=== PATIENT | male | born 1945 | race Caucasian/White ===

== ENCOUNTER → 2016-10-19 | Day surgery (SDC) | payer OTHER, MEDICARE ==
[~2016-10-19] VITALS: Ht 177.8 cm; Wt 97.5 kg
[~2016-10-19] MED LIST: AMIODARONE HCL200 M1 PO; AMLODIPINE10 MG PO; ASPIRIN81 M4 PO; ATORVASTATIN CA80 M1 PO; CLONIDINE HCL0.1 MG PO; COZAAR 100MG T100 MG PO; DEXILANT60 MG PO; DOXAZOSIN PO; ELIQUIS5 M1 PO; ELIQUIS5 MG PO; FUROSEMIDE20 M1 PO; FUROSEMIDE40 M1 PO; HYDRODIURIL 2525 MG PO; LASIX40 M1 PO; LOPRESSOR 12.12.5 MG PO; LOSARTAN POTAS100 M1 PO; PRAVASTATIN40 MG PO
--- NOTE | 2016-10-19 11:27 | Operative Report ---
Operative/Inv Procedure Report Surgery Date: 10/19/16 Name of Procedure: Laparoscopic bilateral inguinal hernia repair Pre-Operative Diagnosis: Bilateral inguinal hernia Post-Operative Diagnosis: Same Estimated Blood Loss: less than 50ml Surgeon/Adjustment Examiner: TUCKER RODRIGUEZ,DIPAK Lan/Kranthi ortega ms Anesthesia: general endotracheal tube Implants: Parietex mesh Operative/Procedure Note Note: After consent patient is brought to the operating room laid supine. General anesthesia was obtained and the abdomen was prepped and draped. Skin was anesthetized with local anesthesia and a transverse infraumbilical incision made sharply. We identified the rectus fascia and incised transversely. Stay sutures were placed. Rectus muscle was retracted laterally and a dissecting balloon placed posterior to it. It was inflated under direct vision the camera and replaced with a blunt Dinero port. Gas was instilled. 2, 5 mm ports were placed in the infraumbilical midline after local anesthesia was instilled and under direct vision and camera. Began our dissection at the pubis and delineated the symphysis. Armando's ligament was identified and cleared. Then dissected laterally and developed the iliopubic tract. There is a large indirect hernia sac as well as lipoma. Both were delivered from the indirect space and reflected medially. The cord structures were circumferentially dissected. Once the dissection was completed a right-sided piece of Parietex mesh was placed in the cavity. It was placed around the cord structures re- create the internal ring and cover the femoral and direct spaces as well. We then turned attention to the left side. In a similar fashion coopers ligament was delineated. There is no direct hernia. We developed the iliopubic tract and discovered a small indirect hernia sac and associated cord lipoma. Dissection was carried forth as previous. Again, a left-sided hernia mesh was placed in a similar fashion. Once both mesh were in proper position, Gas was allowed to escape on maintaining proper orientation of the mesh. The fascia was closed with 0 Vicryl suture. Skin incisions closed with 4-0 Vicryl. Steri- Strips and sterile dressing applied. Sponge and needle counts are correct. CC: WALT RODRIGUEZ,KIKI Young; KALYN RODRIGUEZ,ANABELLE
== END ==
LOC: STS 01:50
DX: K40.20 Bilateral inguinal hernia, without obstruction or gangrene, not specified as recurrent (principal); I10 Essential (primary) hypertension; I48.91 Unspecified atrial fibrillation; Z79.01 Long term (current) use of anticoagulants; Z86.718 Personal history of other venous thrombosis and embolism; K21.9 Gastro-esophageal reflux disease without esophagitis
CPT/HCPCS: C1781; J0690

== ENCOUNTER 2017-11-16 11:56 | Inpatient (IN) | payer OTHER, MEDICARE ==
[~2017-11-16] VITALS: Ht 180.3 cm; Wt 102.3 kg
[~2017-11-16 11:56] MED LIST changes: -AMLODIPINE10 MG PO; +AMOX-CLAV 875-1 EACH PO; +ASPIRIN EC81 M1 PO; +KEFLEX500 M1 PO; +KEPPRA500 M1 PO; +NORVASC2.5 M1 PO; +PERCOCET 5-3251 EACH PO; +VITAMIN D250000 UNIT PO
--- NOTE | 2017-11-16 12:08 | ED NEURO DEFICIT/STROKE ---
History of Present Illness General Chief Complaint: Neuro Symptoms/ Deficit Stated Complaint: CONFUSION SLURRED SPEECH Source: patient, family, old records Exam Limitations: no limitations Vital Signs & Intake/Output Vital Signs & Intake/Output Vital Signs Date Time Temp Pulse Resp B/P B/P Pulse O2 O2 Flow FiO2 Mean Ox Delivery Rate 11/16 1324 98.0 70 18 160/72 96 Room Air 11/16 1252 76 18 177/78 96 Room Air Room Air 11/16 1225 74 18 174/81 96 Room Air Room Air 11/16 1214 96 Room Air Room Air 11/16 1204 97.9 68 20 160/78 97 Room Air Allergies Coded Allergies: NO KNOWN ALLERGIES (08/16/14) NO ALLERGIES PER ANJU IN SDS ON 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 Losartan Potassium 100 MG TABLET 1 TAB PO DAILY HTN (Reported) Triage Nurses Notes Reviewed? yes HPI: Patient lives at home alone. Patient called his daughter at 10 AM this morning because he just did not feel right. She noticed that his speech was slurred. She saw him yesterday and everything was fine. He states that he was getting ready to go to the gym when he felt of pinging sensation in his left ear as well as a tingling sensation over his left side of the body. His daughter went to his house and picked him up and brought him to the emergency department for evaluation. Upon arrival patient is slow to respond however is alert and oriented 3. Patient follows all commands. There is no slurred speech currently. During the history his mentation and cleared more and he was responding more quickly. Past History Travel History Traveled to [place] past 21 day No Medical History Any Pertinent Medical History? 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 No Review of Systems Review of Systems Constitutional: Reports: no symptoms. EENTM: Reports: no symptoms. Respiratory: Reports: no symptoms. Cardiovascular: Reports: no symptoms. GI: Reports: no symptoms. Genitourinary: Reports: no symptoms. Musculoskeletal: Reports: no symptoms. Skin: Reports: no symptoms. Neurological/Psychological: Reports: see HPI, tingling. Hematologic/Endocrine: Reports: no symptoms. Immunologic/Allergic: Reports: no symptoms. All Other Systems: Reviewed and Negative Physical Exam Physical Exam General Appearance: well developed/nourished, alert, awake, anxious, moderate distress Head: atraumatic, normal appearance Eyes: Bilateral: PERRL, EOMI. Ears, Nose, Throat: normal ENT inspection, hearing grossly normal Neck: normal inspection, supple, full range of motion Respiratory: normal breath sounds, chest non-tender, no respiratory distress, lungs clear Cardiovascular: regular rate/rhythm, normal peripheral pulses Gastrointestinal: normal bowel sounds, soft, non-tender, no organomegaly Back: normal inspection, normal range of motion Extremities: normal range of motion Psychiatric: awake, alert, oriented x 3 Cranial Nerves: normal hearing, normal speech, PERRL Motor/Sensory: no motor/sensory deficits Skin: intact, normal color, warm/dry Lymphatic: no anterior cervical ade Core Measures CVA/TIA Diagnosis: No Sepsis Present: No Sepsis Focused Exam Completed? No Progress Differential Diagnosis: drug intoxication, electrolyte imbalance, seizure disorder, stroke Plan of Care: Orders Procedure Date/time Status Heart Healthy Diet 11/16 D Active Patient Data 11/16 1351 Active ED Holding Orders 11/16 1342 Active Admit to inpatient 11/16 1342 Active Vital Signs 11/16 1342 Active Code Status 11/16 1342 Active XRY-PORTABLE CHEST XRAY 11/16 1206 Active Discontinue Telemetry/Monitor 11/16 1205 Active Telemetry/Cytogeneticist 11/16 1205 Active URINALYSIS 11/16 1205 Complete TROPONIN LEVEL 11/16 1205 Complete PARTIAL THROMBOPLASTIN TIME 11/16 1205 Complete PROTHROMBIN TIME 11/16 1205 Complete MAGNESIUM 11/16 1205 Complete ETHANOL 11/16 1205 Complete COMPREHENSIVE METABOLIC PANEL 11/16 1205 Complete CBC WITHOUT DIFFERENTIAL 11/16 1205 Complete EKG 11/16 1202 Active Current Medications Sig/Dustin Start time Last Medication Dose Stop Time Status Admin Levetiracetam 500 MG ONCE ONE 11/16 1345 AC 11/16 (Keppra) 11/16 1359 1345 N/A 1 UNIT (No Carrier) Laboratory Tests 11/16/17 1245: Urine Color STRAW, Urine Clarity CLEAR, Urine pH 6.5, Ur Specific [place] <= 1.005, Urine Protein NEG, Urine Ketones NEG, Urine Nitrite NEG, Urine Bilirubin NEG, Urine Urobilinogen 0.2, Ur Leukocyte Esterase NEG, Ur Microscopic EXAM NOT REQUIRED, Urine Hemoglobin NEG, Urine Glucose NEG 11/16/17 1217: Anion Gap 12, Estimated GFR > 60, BUN/Creatinine Ratio 18.9, Glucose 106 H, Calcium 9.7, Magnesium 1.9, Total Bilirubin 0.7, AST 25, ALT 30, Alkaline Phosphatase 97, Troponin I < 0.01, Total Protein 7.1, Albumin 3.8, Globulin 3.3, Albumin/Globulin Ratio 1.2, PT 14.9 H, INR 1.36 H, APTT 32, CBC w Diff NO MAN DIFF REQ, RBC 5.00, MCV 84.4, MCH 28.0, MCHC 33.2, RDW 14.1, MPV 7.9, Gran % 60.1, Lymphocytes % 27.9, Monocytes % 9.8 H, Eosinophils % 1.9, Basophils % 0.3 , Absolute Granulocytes 2.4, Absolute Lymphocytes 1.1 L, Absolute Monocytes 0.4 , Absolute Eosinophils 0.1, Absolute Basophils 0, Serum Alcohol < 10.0 Diagnostic Imaging: Viewed by Me: CT Scan. Discussed w/RAD: CT Scan. Radiology Impression: PATIENT: JULIETH BRIZUELA PRESENT AGE: 72 PATIENT ACCOUNT NO: [id number] : 43 LOCATION: [facility] ORDERING PHYSICIAN: Sean An MD SERVICE DATE: 11/16/171206 EXAM TYPE: CAT - CT HEAD WO IV CONTRAST EXAMINATION: CT HEAD WITHOUT CONTRAST CLINICAL INFORMATION: Left-sided weakness, resolved. COMPARISON: CT of the head done on 03/30/2017 and 05/30/2016. MRI of the head done on 05/31/2016. TECHNIQUE: Contiguous axial imaging was performed from the skull base to vertex without intravenous administration of contrast. DLP: 563.04 mGy-cm FINDINGS: There is no evidence of acute intracranial hemorrhage or territorial infarction. No abnormal mass effect or midline shift is seen. Murray to white matter differentiation is well preserved. No extra-axial fluid collections are identified. The ventricles are normal in size. Persistent stable encephalomalacia within the right temporal parietal region, consistent with old right MCA territorial infarction is noted, unchanged since 03/30/2017. The osseous structures and soft tissues are normal. The mastoid air cells and visualized portions of the paranasal sinuses are well aerated. IMPRESSION: No acute intracranial pathology. 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 DICTATED BY: Frankie Nava MD DATE/TIME DICTATED:11/16 FLOORING MECHANIC:ESTHELA DATE/TIME TRANSCRIBED:11/16/171255 CONFIDENTIAL, DO NOT COPY WITHOUT APPROPRIATE AUTHORIZATION. <Electronically signed in Other Vendor System> SIGNED BY: Frankie Nava MD 11/16/17 1304 Initial ED EKG: AFIB, nonspecific ST T wave chg Prior EKG: unchanged Rhythm Strip: atrial fibrillation Comments: PT HAD AN EPISODE OF UNRESPONSIVENESS, HYPERTONICITY AND RHYTHMIC JAW MOVMENTS. LASTED APPROX 45 SEC AND THEN RESOLVED. PT WAS SLOW TO RESPOND AFTER EPISODE. D/W DR. CHONG, INCREASE KEPPRA TO 750 BID Departure Departure Disposition: STILL A PATIENT Condition: Stable Clinical Impression Primary Impression: Seizure Referrals: Eric RODRIGUEZ,Chris Young (PCP/Family) Departure Forms: Customer Survey General Discharge Information Admission Note Spoke With: Iftikhar Cerda MD Documentation of Exam: Documentation of any treatments & extenuating circumstances including Concerns Regarding Discharge (functional status, medication knowledge or non-compliance, living conditions, etc.) that warrant an admission rather than observation: [ Patient to be admitted to telemetry, close observation, increase his Keppra dose , neurology consultation]
[2017-11-16 12:57] LABS: ABSOLUTE BASOPHIL COUNT 0 /CUMM (0.0-0.2); ABSOLUTE EOSINOPHIL COUNT 0.1 /CUMM (0.0-0.7); ABSOLUTE GRANULOCYTE CT 2.4 /CUMM (1.4-6.5); ABSOLUTE LYMPH COUNT 1.1 /CUMM (1.2-3.4); ABSOLUTE MONOCYTE COUNT 0.4 /CUMM (0.10-0.60); BASOPHIL % 0.3 % (0.0-2.0); EOSINOPHIL % 1.9 % (0-5); GRANULOCYTE % 60.1 % (42.2-75.2); HEMATOCRIT 42.2 % (42-52); MEAN CORPUSCULAR HGB CONC 33.2 G/DL (33.0-37.0); MEAN CORPUSCULAR VOLUME 84.4 FL (80.0-94.0); MEAN PLATELET VOLUME 7.9 FL (7.4-10.4); PLATELET COUNT 183 /CUMM (130-400); RBC DISTRIBUTION WIDTH 14.1 % (11.5-14.5)
--- NOTE | 2017-11-16 13:04 | CT SCAN REPORT ---
EXAMINATION: CT HEAD WITHOUT CONTRAST CLINICAL INFORMATION: Left-sided weakness, resolved. COMPARISON: CT of the head done on 03/30/2017 and 05/30/2016. MRI of the head done on 05/31/2016. TECHNIQUE: Contiguous axial imaging was performed from the skull base to vertex without intravenous administration of contrast. DLP: 563.04 mGy-cm FINDINGS: There is no evidence of acute intracranial hemorrhage or territorial infarction. No abnormal mass effect or midline shift is seen. Murray to white matter differentiation is well preserved. No extra-axial fluid collections are identified. The ventricles are normal in size. Persistent stable encephalomalacia within the right temporal parietal region, consistent with old right MCA territorial infarction is noted, unchanged since 03/30/2017. The osseous structures and soft tissues are normal. The mastoid air cells and visualized portions of the paranasal sinuses are well aerated. IMPRESSION: No acute intracranial pathology. 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
[2017-11-16 13:06] LABS: PT 14.9 SEC (9.4-12.5); PTT 32 SEC (25-37)
[2017-11-16] MEDS ORDERED: ELIQUIS5 M1 PO (13:21)
--- NOTE | 2017-11-16 13:55 | History & Physical ---
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 Family Services at Home: None, Social Work Primary Language: Maori ETOH Use: denies use Illicit Drug Use: denies illicit drug use Functional Ability ADLs Independent: dressing, eating, toileting, bathing. Ambulation: independent IADLs Independent: shopping, housework, finances, food prep, telephone, transportation , medication admin. Assessment/Plan Assessment: His last echo on 03/26: Normal size left ventricle. Mild concentric left ventricular hypertrophy. Normal left ventricular ejection fraction visually estimated at > 60%. Abnormal relaxation filling pattern of the left ventricle for age (stage 1 diastolic dysfunction). Trace mitral regurgitation. Mild aortic regurgitation. Trace tricuspid regurgitation. Mild pulmonic regurgitation. EEG ON 2016: Abnormal EEG due to right temporal slow wave activities indicative of an underlying structural abnormality This is likely related to previous cerebrovascular accident CT course: Medicine admission: The blood pressure 174/81, pulse 74, respiratory rate 18, temperature 98, pulse ox 96 on room air Admission: CbC, BEP, within normal limits except blood sugar 106, , urinalysis was normal, INR 1.36 PT HAD AN EPISODE OF UNRESPONSIVENESS, HYPERTONICITY AND RHYTHMIC JAW MOVMENTS. LASTED APPROX 45 SEC AND THEN RESOLVED. PT WAS SLOW TO RESPOND AFTER EPISODE. Initial ED EKG: AFIB, nonspecific ST T wave chg D/W DR. CHONG, INCREASE KEPPRA TO 750 BID Core Measures/Misc (02/24) Cerebrovascular Accident CVA/TIA Diagnosis: No Sepsis (View protocol) Sepsis Present: No If YES complete Sepsis Event Note If YES complete Sepsis Event Note
--- NOTE | 2017-11-16 13:57 | RADIOLOGY REPORT ---
EXAMINATION: XR PORTABLE CHEST CLINICAL INFORMATION: Chest pain. COMPARISON: Chest radiograph done on 04/01/2017. TECHNIQUE: Portable frontal view of the chest was obtained. FINDINGS: Both lungs are symmetrically expanded, and appear clear. The cardiac mediastinal silhouette is mildly enlarged. There is no pleural effusion or pneumothorax present. The visualized upper abdomen is unremarkable. No significant change. IMPRESSION: Stable appearance of the chest, unchanged since 04/01/2017.
--- NOTE | 2017-11-16 15:19 | PN- Att Addend ---
Attending Addendum Attending Brief Note Patient is a 71-year-old gentleman with medical history significant for stroke in 2016 with no gross focal neurologic deficits, atrial fibrillation on anticoagulation, supraventricular tachycardia status post ablation in 2015 and 2016 and hypertension. History is also significant for seizure disorder for which he takes Keppra. Daughter admits that patient may not be entirely compliant with his regimen. She reports occasionally finding missed pills in his pillbox. He resides alone but due to challenges caring for himself and take his medications regularly his daughter is in the process of moving closer to him. She drove the patient to the emergency room for evaluation today after he called her complaining of not feeling well. She reports that his speech may have been slurred so she went over to evaluate him. He did not recall events clearly prior to calling her. When she found him she found him lethargic but oriented 3. She reported that he complained of some tingling sensation in his left upper lower extremities. She states that he has complained of similar lethargy following seizures in the past so she drove him to the emergency room for evaluation. In the emergency room it is reported that patient had 2 episodes of generalized tonic-clonic seizures for which she received benzodiazepine therapy with Ativan. Second episode was just prior to being I evaluated the patient. I found the patient sleeping soundly after receiving Ativan. Not in acute distress. Daughter present at the bedside. General appearance: Well-developed and not in any acute distress. HEENT: Anicteric, no pallor, pupils equal and reactive. Neck: Supple with no jugular venous distention. Heart: S1-S2 irregular with no audible murmur. Lungs: Adequate and symmetric air entry bilaterally with no added sounds. Abdomen: Nondistended with normal bowel sounds. Soft, nontender with no palpable masses. Extremities: No pedal edema. No cyanosis. Skin: Intact Problems: 1. Seizure episode; likely due to poor medication compliance. 2. Atrial fibrillation 3. Hypertension Plan: -Admit to inpatient medical service for further management. -Patient is currently drowsy status post Ativan therapy. Continue Keppra intravenously to the patient is more awake. -Neurology consultation for reevaluation of his medication regimen. -Resume his oral cardiac regimen including anticoagulants once he is more alert. -If patient continues to have repeated seizure episodes we repeated need for benzodiazepine therapy consider transfer to the intensive care unit for close respiratory watch and airway protection if needed. -Maintain aspiration precautions at all times. While sedated recommend hydration with D5 half normal saline at 60 cc an hour.
--- NOTE | 2017-11-16 15:24 | History & Physical ---
Anabel RODRIGUEZ,[facility] 11/16/17 1523: General Information and HPI MD Statement: I have seen and personally examined JULIETH BRIZUELA and documented this H&P. The patient is a 72 year old M who presented with a patient stated chief complaint of []. Source of Information: family, ED data Exam Limitations: unable to give history, clinical condition History of Present Illness: Mr Brizuela is a 70-year-old gentleman with past medical history of atrial fibrillation on Eliquis, hypertension, hyperlipidemia, seizures, old MCA infarct , GERD, status post ablation twice for supraventricular tachycardia and atrial fibrillation on 12/03/2015 who was brought to the ED by his daughter for evaluation of confusion and seizures. Most of the history has been obtained from ER data and from the daughter as the patient was drowsy at the time of our interview. The daughter states that earlier this morning she got a call from her father asking her to come in as he was not feeling well. She noticed that his speech was slurred. She saw him yesterday and everything was fine. When she got to his place, he found the patient to be slightly confused which prompted her to bring her to the ER. The daughter has reported that the patient is not completely compliant with his medications and she ccasionally finds missed pills in his pillbox. The patient was not noted to have any slurring of speech while in the ED. Of note, the patient had a generalized seizure in the ED which lasted for about 45 seconds. Allergies/Medications Allergies: Coded Allergies: NO KNOWN ALLERGIES (08/16/14) NO ALLERGIES PER ANJU IN SDS ON 05/27/14 (SJS) Home Med list Apixaban (Eliquis) 5 MG TABLET 1 TAB PO BID AFIB (Reported) Atorvastatin Calcium 80 MG TABLET 1 TAB PO DAILY HEART HEALTH Clonidine HCl 0.1 MG TABLET 1 TAB PO BID HEART (Reported) Furosemide (Lasix) 40 MG TABLET 40 MG PO SEE ADMIN CRITERIA DIURESIS ( Reported) TAKE 1 TABLET (40MG) PO QAM AND 1/2 TABLET (20MG) EVERY AFTERNOON Levetiracetam (Keppra) 500 MG TABLET 1.5 TAB PO BID Seizures Levetiracetam (Keppra) 500 MG TABLET 500 MG PO BID seizures . 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 Family Services at Home: None, Social Work Primary Language: Ukrainian ETOH Use: denies use Illicit Drug Use: denies illicit drug use Functional Ability ADLs Independent: dressing, eating, toileting, bathing. Ambulation: independent IADLs Independent: shopping, housework, finances, food prep, telephone, transportation , medication admin. Review of Systems Review of Systems Constitutional: Reports: no symptoms. Exam & Diagnostic Data Last 24 Hrs of Vital Signs/I&O Vital Signs Date Time Temp Pulse Resp B/P B/P Pulse O2 O2 Flow FiO2 Mean Ox Delivery Rate 11/16 1519 64 18 128/63 98 Nasal 2.0L Cannula 11/16 1502 97.0 78 18 132/60 98 Nasal 2.0L Cannula 11/16 1455 97.7 60 18 132/60 97 Nasal 2.0L Cannula 11/16 1324 98.0 70 18 160/72 96 Room Air 11/16 1252 76 18 177/78 96 Room Air Room Air 11/16 1225 74 18 174/81 96 Room Air Room Air 11/16 1214 96 Room Air Room Air 11/16 1204 97.9 68 20 160/78 97 Room Air Intake & Output 11/16 1600 11/16 0800 11/16 0000 Intake Total Output Total 900 Balance -900 Output, Urine 900 Patient 233 lb Weight Physical Exam General Appearance Cooperative, Mild Distress, drowsy, lethargic Skin No Rashes, No Breakdown Skin Temp/Moisture Exam: Warm/Dry Sepsis Skin Exam (color): Normal for Ethnicity HEENT Atraumatic Cardiovascular Normal S1, Normal S2, No Murmurs Lungs Clear to Auscultation, Normal Air Movement Abdomen Soft, No Tenderness Neurological Normal Speech Extremities trace bilateral lower extremity edema Last 24 Hrs of Labs/Jass: Laboratory Tests 11/16/17 1245: Urine Color STRAW, Urine Clarity CLEAR, Urine pH 6.5, Ur Specific [place] <= 1.005, Urine Protein NEG, Urine Ketones NEG, Urine Nitrite NEG, Urine Bilirubin NEG, Urine Urobilinogen 0.2, Ur Leukocyte Esterase NEG, Ur Microscopic EXAM NOT REQUIRED, Urine Hemoglobin NEG, Urine Glucose NEG 11/16/17 1217: Anion Gap 12, Estimated GFR > 60, BUN/Creatinine Ratio 18.9, Glucose 106 H, Calcium 9.7, Magnesium 1.9, Total Bilirubin 0.7, AST 25, ALT 30, Alkaline Phosphatase 97, Troponin I < 0.01, Total Protein 7.1, Albumin 3.8, Globulin 3.3, Albumin/Globulin Ratio 1.2, PT 14.9 H, INR 1.36 H, APTT 32, CBC w Diff NO MAN DIFF REQ, RBC 5.00, MCV 84.4, MCH 28.0, MCHC 33.2, RDW 14.1, MPV 7.9, Gran % 60.1, Lymphocytes % 27.9, Monocytes % 9.8 H, Eosinophils % 1.9, Basophils % 0.3 , Absolute Granulocytes 2.4, Absolute Lymphocytes 1.1 L, Absolute Monocytes 0.4 , Absolute Eosinophils 0.1, Absolute Basophils 0, Serum Alcohol < 10.0 Assessment/Plan Assessment: Mr Brizuela is a 70-year-old gentleman with past medical history of atrial fibrillation on Eliquis, hypertension, hyperlipidemia, seizures, old MCA infarct , GERD, status post ablation twice for supraventricular tachycardia and atrial fibrillation on 12/03/2015 who was brought to the ED by his daughter for evaluation of confusion and seizures. Assessment: 1. Episode of Seizure 2. History of generalized seizures 3. History of A.fib on Eliquis 4. History of Hypertension and Hyperlipidemia 5. History of old MCA infarct Plan: * Admit patient to general medicine floor * Neuro was consulted in the ER with recommendations to increase his Keppra to 750mg bid * Continue IV keppra for now and can be transitioned to oral once he is more awake and alert * Monitor for now. If he has recurrent seizures, will have a low threshold to transfer to the ICU * His seizure was likely precipitated in the setting of medication noncompliance. * Hydrate with D5W-1/2 NS @50ml/hr * neuro consult to optimize medications * Seizure precautions * Aspiration precautions * Continue all meds once patient is more awake to tolerate oral meds. * Diet: Heart Healthy * DVT Prophylaxis: On Eliquis * Code: Full Code As Ranked By This Provider Problem List: 1. Seizure Core Measures/Misc (02/24) Acute Coronary Syndrome ACS Diagnosis: No Congestive Heart Failure Congestive Heart Failure Diagnosis No Cerebrovascular Accident CVA/TIA Diagnosis: No VTE (View Protocol) VTE Risk Factors Age>40 No Mechanical VTE Prophylaxis d/t N/A MechProphylax Ordered No VTE Pharm Prophylaxis d/t NA PharmProphylax ordered Sepsis (View protocol) Sepsis Present: No If YES complete Sepsis Event Note If YES complete Sepsis Event Note Ileana Maldonado MD,Luís 11/16/17 1557: Core Measures/Misc (02/24) Sepsis (View protocol) If YES complete Sepsis Event Note If YES complete Sepsis Event Note Resident Review Statement Resident Statement: examined this patient, discussed with internet assessor, agreed with internet assessor, discussed with family, reviewed EMR data (avail) Other Findings: 72-year-old male with past medical history significant for hypertension, hyperlipidemia, GERD, right knee replacement surgery March 2016, atrial fibrillation on eliqus, status post ablation for supraventricular tachycardia and atrial fibrillation in 2014 and 2015, acute cerebrovascular accident without any major neurological deficits in 2015, with his last admission in March 2017 at [facility] for new onset generalized seizure, brought into emergency department with acute episode of confusion noticed by daughter. Patient had no new episodes of seizure after discharge as per daughter from last admission in March 2017. As per the daughter patient called him stating that he was not feeling well. When daughter reached home patient was confused and decided to bring him to emergency department. On their way to [facility] patient also felt some pinging in the ears and saw some lights. Patient had a similar episode in emergency department and after that patient experienced an episode of generalized seizure which lasted about 40 seconds. Patient was given IV Ativan in the ED. Vitals in emergency department, patient afebrile no tachypnea, no tachycardia, stable systolic and diastolic blood pressure, oxygen saturation of 98% on 2 L nasal cannula. On examination patient was drowsy after receiving Ativan and it was difficult to complete neurological examination. Grossly intact neurological examination pupils equal and reactive to light. 5/5 strength in bilateral upper and lower extremities. S1 and S2 audible without any murmurs, overall clear lungs, benign abdominal examination. 1+ bilateral lower extremity edema. No JVD Lab data in ED showed WBC 4, hemoglobin of 14 and hematocrit of 42.2, platelet count 183, no significant electrolyte abnormalities, negative troponin, INR 1.36 , serum alcohol of less than 10 and negative UA. Imaging in emergency department showed no acute intracranial pathology, stable previous infarct and normal chest x-ray. Patient was admitted on general med floor for the management of following problems Altered mental status Acute seizure episode with history of generalized seizure - Most likely secondary to acute episode of seizure in the presence of previous history of CVA and encephalomalacia (current CT HEAD -ve for any new stroke) vs Infection/PNA (CXR - Negative for consolidation)/ UTI (afebrile, No Leukocytosis , UA negative) - Admit to General Medicine - Avoid Delirium triggers including BDZ, Constipation and dehydration. - Keep room well lit - Reorient patient with wall clock and familiar faces - Encourage Oral Intake - Start Heart Healthy Diet - Fall Precautions - Aspiration Precautions No apparent trigger for seizures, likely secondary to noncompliance as per the daughter - Seizure precautions - Replace Vitamin D - Obtain urology consult - EEG - Increase Keppra dose as per neurology - Obtain Keppra levels - In case of worsening seizures, will place the patient in intensive care unit History of atrial fibrillation on anticoagulation Patient is currently rate controlled. He is on Eliquis for anticoagulation Patient is DNR/DNI Patient is on heart healthy diet Patient is on Eliquis for DVT prophylaxis Patient is on pain pathway
[2017-11-16 17:45] VITALS: BP 122/62
--- NOTE | 2017-11-16 17:47 | Cons- Neurology ---
General Information and HPI Consulting Request Date of Consult: 11/16/17 Requested By: Prashant RODRIGUEZ,Iftikhra History of Present Illness: 70-year-old male presents after unusual episode today and then witnessed seizure in ED He was admitted in March 2017 when he had an observed seizure Subsequently he has been on levetiracetam 500 mg twice a day He states that he is faithful with his medications Today while at home he noted a sudden tinnitus in the left ear which was then followed by left sided tingling in the upper extremity and then in the lower extremity He was not feeling well and was able to call his daughter At that time she noted that his speech was slurred and he was somewhat confused [facility] is observed to have a convulsion lasting approximately 45 minutes Subsequently he states that he was feeling well There is no tongue biting or incontinence He has not had a convulsion since his visit to Hospital last March until the present time He no longer notes left-sided paresthesia There was no instance of recent head trauma Allergies/Medications Allergies: Coded Allergies: NO KNOWN ALLERGIES (08/16/14) NO ALLERGIES PER ANJU IN SDS ON 05/27/14 (SJS) Home Med List: Apixaban (Eliquis) 5 MG TABLET 1 TAB PO BID AFIB (Reported) Atorvastatin Calcium 80 MG TABLET 1 TAB PO DAILY HEART HEALTH Clonidine HCl 0.1 MG TABLET 1 TAB PO BID HEART (Reported) Furosemide (Lasix) 40 MG TABLET 40 MG PO SEE ADMIN CRITERIA DIURESIS ( Reported) TAKE 1 TABLET (40MG) PO QAM AND 1/2 TABLET (20MG) EVERY AFTERNOON Levetiracetam (Keppra) 500 MG TABLET 500 MG PO BID seizures . Losartan Potassium 100 MG TABLET 1 TAB PO DAILY HTN (Reported) Current Medications: Current Medications Sig/Dustin Start time Last Medication Dose Route Stop Time Status Admin Acetaminophen 650 MG Q6 PRN 11/16 1630 AC PO Apixaban 5 MG BID 11/16 2100 AC PO Atorvastatin Calcium 80 MG DAILY@1700 11/16 1700 AC PO Cholecalciferol 2,000 IU DAILY 11/16 1629 AC PO Clonidine 0.1 MG BID 11/16 2100 AC PO Dextrose/Sodium 1,000 ML Q20H 11/16 1545 AC 11/16 Chloride IV 11/17 0824 1555 Furosemide 40 MG DAILY 11/17 0900 AC PO Furosemide 20 MG 5PM 11/16 1700 AC PO Levetiracetam 750 MG Q12 11/16 2100 AC Sodium Chloride 100 ML IV Levetiracetam 500 MG ONCE ONE 11/16 1345 DC 11/16 N/A 1 UNIT IV 11/16 1359 1345 Lorazepam 2 MG ONE ONE 11/16 1415 DC / IV 11/16 1416 1420 Lorazepam 0 .STK-MED ONE 11/16 1413 DC .ROUTE Losartan Potassium 100 MG DAILY 11/17 0900 AC PO Review of Systems Review of Systems: Had mild headache earlier which resolved No diplopia No weight change No difficulty swallowing Poor hearing on right No chest pains No breathing difficulties No nausea or vomiting No incontinence No fevers No swelling No head injury Other systems reviewed and negative Past History Travel History Traveled to [place] past 21 day No Medical History Neurological: CVA, seizure EENT: S/P SINUS SURGERY Cardiovascular: hypertension, hyperlipidemia, AFIB SVT ABLATION FOR SVT/AFIB Respiratory: NONE Gastrointestinal: GERD Hepatic: NONE Renal: NONE Musculoskeletal: NONE Psychiatric: NONE Endocrine: NONE Blood Disorders: NONE Cancer(s): 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 Family Services at Home: None, Social Work Primary Language: Nepali Smoking Status: Never Smoked ETOH Use: denies use Illicit Drug Use: denies illicit drug use Functional Ability ADLs Independent: dressing, eating, toileting, bathing. Ambulation: independent IADLs Independent: shopping, housework, finances, food prep, telephone, transportation , medication admin. Exam & Diagnostic Data Vital Signs and I&O Vital Signs Date Time Temp Pulse Resp B/P B/P Pulse O2 O2 Flow FiO2 Mean Ox Delivery Rate 11/16 1650 97.8 67 18 114/59 98 Nasal 2.0L Cannula 11/16 1519 64 18 128/63 98 Nasal 2.0L Cannula 11/16 1502 97.0 78 18 132/60 98 Nasal 2.0L Cannula 11/16 1455 97.7 60 18 132/60 97 Nasal 2.0L Cannula 11/16 1324 98.0 70 18 160/72 96 Room Air 11/16 1252 76 18 177/78 96 Room Air Room Air 11/16 1225 74 18 174/81 96 Room Air Room Air 11/16 1214 96 Room Air Room Air 11/16 1204 97.9 68 20 160/78 97 Room Air Intake & Output 11/16 1600 11/16 0800 11/16 0000 Intake Total Output Total 900 Balance -900 Output, Urine 900 Patient 233 lb Weight Physical Exam: Mildly drowsy but arousable Appears comfortable Language functions fund of knowledge attention span concentration recall intact Extraocular movements full pupils equal reactive fundi benign left visual field loss no facial weakness palate tongue and shoulders intact hearing grossly intact Normal tone and strength upper and lower extremities No loss to light touch bilaterally Deep tendon reflexes hypoactive throughout Coordinative functions show no abnormalities Gait was not assessed due to recent seizure and drowsiness Family history shows mother had diabetes Last 48 Hours of Lab Results: Laboratory Tests 11/16 11/16 1245 1217 Toxicology Serum Alcohol (<10 MG/DL) < 10.0 Urines Urine Color (YEL,AMB,STR) STRAW Urine Clarity (CLEAR) CLEAR Urine pH (5.0 - 8.0) 6.5 Ur Specific [place] (1.001 - 1.035) <= 1.005 Urine Protein (NEG,<30 MG/DL) NEG Urine Ketones (NEG) NEG Urine Nitrite (NEG) NEG Urine Bilirubin (NEG) NEG Urine Urobilinogen (0.1 - 1.0 EU/dl) 0.2 Ur Leukocyte Esterase (NEG) NEG Ur Microscopic EXAM NOT REQUIRED Urine Hemoglobin (NEG) NEG Urine Glucose (N MG/DL) NEG 11/16 1217 Chemistry Sodium (137 - 145 mmol/L) 144 Potassium (3.5 - 5.1 mmol/L) 4.3 Chloride (98 - 107 mmol/L) 105 Carbon Dioxide (22 - 30 mmol/L) 27 Anion Gap (5 - 16) 12 BUN (9 - 20 mg/dL) 17 Creatinine (0.7 - 1.2 mg/dL) 0.9 Estimated GFR (>60 ml/min) > 60 BUN/Creatinine Ratio (7 - 25 %) 18.9 Glucose (65 - 99 mg/dL) 106 H Calcium (8.4 - 10.2 mg/dL) 9.7 Magnesium (1.6 - 2.3 mg/dL) 1.9 Total Bilirubin (0.2 - 1.3 mg/dL) 0.7 AST (17 - 59 U/L) 25 ALT (21 - 72 U/L) 30 Alkaline Phosphatase (< 127 U/L) 97 Troponin I (<0.11 ng/ml) < 0.01 Total Protein (6.3 - 8.2 g/dL) 7.1 Albumin (3.5 - 5.0 g/dL) 3.8 Globulin (1.9 - 4.2 gm/dL) 3.3 Albumin/Globulin Ratio (1.1 - 2.2 %) 1.2 Coagulation PT (9.4 - 12.5 SEC) 14.9 H INR (0.90 - 1.17) 1.36 H APTT (25 - 37 SEC) 32 Hematology CBC w Diff NO MAN DIFF REQ WBC (4.8 - 10.8 /CUMM) 4.0 L RBC (4.70 - 6.10 /CUMM) 5.00 Hgb (14.0 - 18.0 G/DL) 14.0 Hct (42 - 52 %) 42.2 MCV (80.0 - 94.0 FL) 84.4 MCH (27.0 - 31.0 PG) 28.0 MCHC (33.0 - 37.0 G/DL) 33.2 RDW (11.5 - 14.5 %) 14.1 Plt Count (130 - 400 /CUMM) 183 MPV (7.4 - 10.4 FL) 7.9 Gran % (42.2 - 75.2 %) 60.1 Lymphocytes % (20.5 - 51.1 %) 27.9 Monocytes % (1.7 - 9.3 %) 9.8 H Eosinophils % (0 - 5 %) 1.9 Basophils % (0.0 - 2.0 %) 0.3 Absolute Granulocytes (1.4 - 6.5 /CUMM) 2.4 Absolute Lymphocytes (1.2 - 3.4 /CUMM) 1.1 L Absolute Monocytes (0.10 - 0.60 /CUMM) 0.4 Absolute Eosinophils (0.0 - 0.7 /CUMM) 0.1 Absolute Basophils (0.0 - 0.2 /CUMM) 0 Toxicology Levetiracetam Pending Imaging/Other Studies: CT: FINDINGS: There is no evidence of acute intracranial hemorrhage or territorial infarction. No abnormal mass effect or midline shift is seen. Murray to white matter differentiation is well preserved. No extra-axial fluid collections are identified. The ventricles are normal in size. Persistent stable encephalomalacia within the right temporal parietal region, consistent with old right MCA territorial infarction is noted, unchanged since 03/30/2017. The osseous structures and soft tissues are normal. The mastoid air cells and visualized portions of the paranasal sinuses are well aerated. IMPRESSION: No acute intracranial pathology. 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 Assessment/Plan Assessment: Recurrent seizure History cerebrovascular disease Recommendations: Increase levetiracetam to 750 mg twice a day Electroencephalogram; if patient is to be discharged tomorrow can arrange outpatient EEG Second anticonvulsant medication if patient continues to have recurrent seizure Consult Acknowledgment - Thank you for your consult request.
[2017-11-16 21:49] VITALS: BP 142/72
[2017-11-17 06:14] VITALS: BP 121/66
--- NOTE | 2017-11-17 08:06 | PN- Housestaff ---
Subjective Follow-up For: seizures Subjective: patient seen and examined. Feels well. No seizure activity overnight. Inquires if he can be discharged home today. Review of Systems Constitutional: Reports: no symptoms. Objective Last 24 Hrs of Vital Signs/I&O Vital Signs Date Time Temp Pulse Resp B/P B/P Pulse O2 O2 Flow FiO2 Mean Ox Delivery Rate 11/17 0848 66 154/74 11/17 0848 66 154/74 11/17 0614 98.4 56 20 121/66 95 Room Air 11/16 2149 98.9 72 18 142/72 95 Room Air 11/16 2146 72 142/72 11/16 1745 98.2 75 18 122/62 93 Room Air 11/16 1650 97.8 67 18 114/59 98 Nasal 2.0L Cannula 11/16 1519 64 18 128/63 98 Nasal 2.0L Cannula 11/16 1502 97.0 78 18 132/60 98 Nasal 2.0L Cannula 11/16 1455 97.7 60 18 132/60 97 Nasal 2.0L Cannula 11/16 1324 98.0 70 18 160/72 96 Room Air 11/16 1252 76 18 177/78 96 Room Air Room Air 11/16 1225 74 18 174/81 96 Room Air Room Air 11/16 1214 96 Room Air Room Air 11/16 1204 97.9 68 20 160/78 97 Room Air Intake & Output 11/17 1600 11/17 0800 06 0000 Intake Total 600 840 Output Total 600 Balance 600 240 Intake, IV 480 360 Intake, Oral 120 480 Number 0 Bowel Movements Output, Urine 600 Patient 225 lb 233 lb Weight Weight Bed scale Reported by Patient Measurement Method Physical Exam General Appearance: Alert, Oriented X3, Cooperative, No Acute Distress Skin: No Rashes, No Breakdown Skin Temp/Moisture Exam: Warm/Dry Sepsis Skin Exam (color): Normal for Ethnicity HEENT: Atraumatic Cardiovascular: Normal S1, Normal S2, No Murmurs Lungs: Clear to Auscultation, Normal Air Movement Abdomen: Soft, No Tenderness Neurological: Normal Speech Extremities: No Edema Last 24 Hrs of Lab/Jass Results Last 24 Hrs of Labs/Mics: Laboratory Tests 11/17/17 0720: Anion Gap 8, Estimated GFR > 60, BUN/Creatinine Ratio 18.8, Magnesium 1.9, CBC w Diff NO MAN DIFF REQ, RBC 4.73, MCV 83.9, MCH 28.0, MCHC 33.5, RDW 13.8, MPV 7.8 , Gran % 59.1, Lymphocytes % 30.6, Monocytes % 8.5, Eosinophils % 1.4, Basophils % 0.4, Absolute Granulocytes 2.7, Absolute Lymphocytes 1.4, Absolute Monocytes 0.4, Absolute Eosinophils 0.1, Absolute Basophils 0 11/16/17 1245: Urine Color STRAW, Urine Clarity CLEAR, Urine pH 6.5, Ur Specific [place] <= 1.005, Urine Protein NEG, Urine Ketones NEG, Urine Nitrite NEG, Urine Bilirubin NEG, Urine Urobilinogen 0.2, Ur Leukocyte Esterase NEG, Ur Microscopic EXAM NOT REQUIRED, Urine Hemoglobin NEG, Urine Glucose NEG 11/16/17 1217: Serum Alcohol < 10.0 11/16/17 1217: Anion Gap 12, Estimated GFR > 60, BUN/Creatinine Ratio 18.9, Glucose 106 H, Calcium 9.7, Magnesium 1.9, Total Bilirubin 0.7, AST 25, ALT 30, Alkaline Phosphatase 97, Troponin I < 0.01, Total Protein 7.1, Albumin 3.8, Globulin 3.3, Albumin/Globulin Ratio 1.2, PT 14.9 H, INR 1.36 H, APTT 32, CBC w Diff NO MAN DIFF REQ, RBC 5.00, MCV 84.4, MCH 28.0, MCHC 33.2, RDW 14.1, MPV 7.9, Gran % 60.1, Lymphocytes % 27.9, Monocytes % 9.8 H, Eosinophils % 1.9, Basophils % 0.3 , Absolute Granulocytes 2.4, Absolute Lymphocytes 1.1 L, Absolute Monocytes 0.4 , Absolute Eosinophils 0.1, Absolute Basophils 0, Levetiracetam Pending Assessment/Plan Assessment: Mr Mejía is a 70-year-old gentleman with past medical history of atrial fibrillation on Eliquis, hypertension, hyperlipidemia, seizures, old MCA infarct , GERD, status post ablation twice for supraventricular tachycardia and atrial fibrillation on 12/03/2015 who was brought to the ED by his daughter for evaluation of confusion and seizures. Assessment: 1. Episode of Seizure 2. History of generalized seizures 3. History of A.fib on Eliquis 4. History of Hypertension and Hyperlipidemia 5. History of old MCA infarct Plan: * Stable to be discharged * Continue Keppra at PO 750mg BID. * His seizure was likely precipitated in the setting of medication noncompliance. * EEG plans as outpatient. * Seizure precautions * Aspiration precautions * Continue all home meds * Diet: Heart Healthy * DVT Prophylaxis: On Eliquis * Code: Full Code Problem List: 1. Seizure Pain Ratin Pain Location: none Pain Goal: Remain pain free Pain Plan: none Tomorrow's Labs & Rationales: none
[2017-11-17 08:40] LABS: ABSOLUTE BASOPHIL COUNT 0 /CUMM (0.0-0.2); ABSOLUTE EOSINOPHIL COUNT 0.1 /CUMM (0.0-0.7); ABSOLUTE GRANULOCYTE CT 2.7 /CUMM (1.4-6.5); ABSOLUTE LYMPH COUNT 1.4 /CUMM (1.2-3.4); ABSOLUTE MONOCYTE COUNT 0.4 /CUMM (0.10-0.60); BASOPHIL % 0.4 % (0.0-2.0); EOSINOPHIL % 1.4 % (0-5); GRANULOCYTE % 59.1 % (42.2-75.2); HEMATOCRIT 39.7 % (42-52); MEAN CORPUSCULAR HGB CONC 33.5 G/DL (33.0-37.0); MEAN CORPUSCULAR VOLUME 83.9 FL (80.0-94.0); MEAN PLATELET VOLUME 7.8 FL (7.4-10.4); PLATELET COUNT 172 /CUMM (130-400); RBC DISTRIBUTION WIDTH 13.8 % (11.5-14.5); RED BLOOD CELL CT 4.73 /CUMM (4.70-6.10); WHITE BLOOD CELL COUNT 4.6 /CUMM (4.8-10.8)
[2017-11-17 08:48] VITALS: BP 154/74
[2017-11-17] MEDS ORDERED: KEPPRA750 M1 PO (09:37)
--- NOTE | 2017-11-17 09:38 | Patient Discharge Instructions ---
Discharge Instructions General Discharge Information You were seen/treated for: Seizures Special Instructions: Please follow up with your PCP and neurologist within one week of discharge. Please have an EEG as an outpatient Please avoid driving and going to the gym till you follow up with your neurologist. Diet Continue normal diet: Yes Recommended Diet: Heart Healthy Activity Full Activity/No Limits: Yes Acute Coronary Syndrome Inclusion Criteria At DC or during hospital stay patient has or had the following: ACS DIAGNOSIS No Discharge Core Measures Meds if any: Prescribed or Continued at Discharge Meds if any: NOT Prescribed or Continued at Discharge Congestive Heart Failure Inclusion Criteria At DC or during hospital stay patient has or had the following: CHF DIAGNOSIS No Discharge Core Measures Meds if any: Prescribed or Continued at Discharge Meds if any: NOT Prescribed or Continued at Discharge Cerebrovascular accident Inclusion Criteria At DC or during hospital stay patient has or had the following: CVA/TIA Diagnosis No Discharge Core Measures Meds if any: Prescribed or Continued at Discharge Meds if any: NOT Prescribed or Continued at Discharge Venous thromboembolism Inclusion Criteria VTE Diagnosis No VTE Type NONE VTE Confirmed by (Test) NONE Discharge Core Measures - Per Current guidelines, there needs to be overlap - treatment for the first 5 days of Warfarin therapy. - If discharged on Warfarin prior to 5 days of - overlap therapy, the patient will need to be - assessed for post discharge needs including - *Post discharge parental anticoagulation - *Warfarin and/or parental anticoagulation education - *Follow up date to check INR post discharge At least 5 days overlap therapy as Inpatient No Meds if any: Prescribed or Continued at Discharge Note: Overlap Therapy is Warfarin and Anticoagulant Meds if any: NOT Prescribed or Continued at Discharge
[2017-11-17] MEDS ORDERED: KEPPRA500 M1 PO (09:42)
--- NOTE | 2017-11-17 09:46 | Discharge Summary ---
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 On initial presentation to the ED, he was slow to respond but alert and oriented episodes of generalized tonic-clonic seizures for which he received IV Lorazepam. Neurology was consulted with recommendations to increase the dose of his Keppra to 750mg BID. He was admitted to the general medicine floor for further monitoring. The patient was drowsy after Lorazepam and hence received IV Keppra. Overnight he did well, with no further episodes of seziures after admission. He was reassessed the next morning and deemed stable for discharge. He was recommended to follow up with neurology after discharge and maintain compliance with his medications. He was counselled to avoid driving and gyming until he is cleared by his neurologist. Allergies: Coded Allergies: NO KNOWN ALLERGIES (08/16/14) NO ALLERGIES PER ANJU IN SDS ON 05/27/14 ([facility]) Significant Procedures: SERVICE DATE: 11/16/17 EXAM TYPE: CAT - CT HEAD WO IV CONTRAST FINDINGS: There is no evidence of acute intracranial hemorrhage or territorial infarction. No abnormal mass effect or midline shift is seen. Murray to white matter differentiation is well preserved. No extra-axial fluid collections are identified. The ventricles are normal in size. Persistent stable encephalomalacia within the right temporal parietal region, consistent with old right MCA territorial infarction is noted, unchanged since 03/30/2017. The osseous structures and soft tissues are normal. The mastoid air cells and visualized portions of the paranasal sinuses are well aerated. IMPRESSION: No acute intracranial pathology. 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 SERVICE DATE: 11/16/17 EXAM TYPE: RAD - XRY-PORTABLE CHEST XRAY FINDINGS: Both lungs are symmetrically expanded, and appear clear. The cardiac mediastinal silhouette is mildly enlarged. There is no pleural effusion or pneumothorax present. The visualized upper abdomen is unremarkable. No significant change. IMPRESSION: Stable appearance of the chest, unchanged since 04/01/2017. Disposition Summary Disposition Principal Diagnosis: Generalized Seizures Additional Diagnosis: atrial fibrillation on Eliquis hypertension hyperlipidemia seizures old MCA infarct/stroke GERD, Discharge Disposition: home or self care Discharge Instructions General Discharge Information Code Status: Do Not Resucitate/Intubat Patient's Diet: Heart Healthy Patient's Activity: As tolerated Follow-Up Instructions/Appts: Please follow up with your PCP and neurologist within one week of discharge. Please have an EEG as an outpatient Please avoid driving and going to the gym till you follow up with your neurologist. Medications at Discharge Discharge Medications: Stop taking the following medications: Levetiracetam (Keppra) 500 MG TABLET ORAL TWICE DAILY Qty = 60 Continue taking these medications: Clonidine HCl (Clonidine HCl) 0.1 MG TABLET 1 Tablet ORAL TWICE DAILY Days = 90 Comments: Last Taken: 11/17/17 Time: 8:48 AM Atorvastatin Calcium (Atorvastatin Calcium) 80 MG TABLET 1 Tablet ORAL DAILY Qty = 30 Comments: NOT GIVEN IN HOSPITAL Losartan Potassium (Losartan Potassium) 100 MG TABLET 1 Tablet ORAL DAILY Comments: Last Taken: 11/17/17 Time: 8:48 AM Furosemide (Lasix) 40 MG TABLET 40 Milligram ORAL SEE INSTRUCTIONS Qty = 135 Instructions: TAKE 1 TABLET (40MG) PO QAM AND 1/2 TABLET (20MG) EVERY AFTERNOON Comments: Last Taken:11/17/17 Time:8:48 AM Apixaban (Eliquis) 5 MG TABLET 1 Tablet ORAL TWICE DAILY Qty = 180 Comments: Last Taken:11/17/17 Time:8:48 AM Start taking the following new medications: Levetiracetam (Keppra) 500 MG TABLET 1.5 Tablet ORAL TWICE DAILY Qty = 60 No Refills Comments: Last Taken:11/17/17 Time:9:24 AM GIVEN IV IN HOSPITAL Copies To: Rubén RODRIGUEZ,Goyo Aldridge; Eric RODRIGUEZ,Chris Young Attending MD Review Statement Documenting Attending: Iftikhar Cerda MD Other Findings: Medically stable to be discharged home today.
--- NOTE | 2017-11-17 10:01 | PN- Att Addend ---
Attending Addendum Attending Brief Note Patient seen and examined. No issues overnight reported by nursing staff. This morning he is alert and oriented 3 his very jovial. He is conversing appropriately. He admits that he may have inadvertently missed 1 or 2 doses of his Keppra at home. He does appear very motivated. He did inquire about additional therapy other than medications to help cure seizures. I did discuss that there are some surgical options that are reserved for refractory seizures. He is looking for to go home today and continue on oral antiepileptic therapy. Vital Signs Date Time Temp Pulse Resp B/P B/P Pulse O2 O2 Flow FiO2 Mean Ox Delivery Rate 11/17 0848 66 154/74 11/17 0848 66 154/74 11/17 0614 98.4 56 20 121/66 95 Room Air 11/16 2149 98.9 72 18 142/72 95 Room Air 11/16 2146 72 142/72 11/16 1745 98.2 75 18 122/62 93 Room Air 11/16 1650 97.8 67 18 114/59 98 Nasal 2.0L Cannula 11/16 1519 64 18 128/63 98 Nasal 2.0L Cannula 11/16 1502 97.0 78 18 132/60 98 Nasal 2.0L Cannula 11/16 1455 97.7 60 18 132/60 97 Nasal 2.0L Cannula 11/16 1324 98.0 70 18 160/72 96 Room Air 11/16 1252 76 18 177/78 96 Room Air Room Air 11/16 1225 74 18 174/81 96 Room Air Room Air 11/16 1214 96 Room Air Room Air 11/16 1204 97.9 68 20 160/78 97 Room Air Gen. appearance: Well-developed and not in any distress. Heart: S1-S2 regular Lungs: Clear to auscultation bilaterally Abdomen: Soft, nontender with normal bowel sounds Extremities: No pedal edema Skin: Intact with no rashes Neurologic: No gross focal deficits. Laboratory Tests 11/17/17 0720: Anion Gap 8, Estimated GFR > 60, BUN/Creatinine Ratio 18.8, Magnesium 1.9, CBC w Diff NO MAN DIFF REQ, RBC 4.73, MCV 83.9, MCH 28.0, MCHC 33.5, RDW 13.8, MPV 7.8 , Gran % 59.1, Lymphocytes % 30.6, Monocytes % 8.5, Eosinophils % 1.4, Basophils % 0.4, Absolute Granulocytes 2.7, Absolute Lymphocytes 1.4, Absolute Monocytes 0.4, Absolute Eosinophils 0.1, Absolute Basophils 0 11/16/17 1245: Urine Color STRAW, Urine Clarity CLEAR, Urine pH 6.5, Ur Specific [place] <= 1.005, Urine Protein NEG, Urine Ketones NEG, Urine Nitrite NEG, Urine Bilirubin NEG, Urine Urobilinogen 0.2, Ur Leukocyte Esterase NEG, Ur Microscopic EXAM NOT REQUIRED, Urine Hemoglobin NEG, Urine Glucose NEG 11/16/17 1217: Serum Alcohol < 10.0 11/16/17 121: Anion Gap 12, Estimated GFR > 60, BUN/Creatinine Ratio 18.9, Glucose 106 H, Calcium 9.7, Magnesium 1.9, Total Bilirubin 0.7, AST 25, ALT 30, Alkaline Phosphatase 97, Troponin I < 0.01, Total Protein 7.1, Albumin 3.8, Globulin 3.3, Albumin/Globulin Ratio 1.2, PT 14.9 H, INR 1.36 H, APTT 32, CBC w Diff NO MAN DIFF REQ, RBC 5.00, MCV 84.4, MCH 28.0, MCHC 33.2, RDW 14.1, MPV 7.9, Gran % 60.1, Lymphocytes % 27.9, Monocytes % 9.8 H, Eosinophils % 1.9, Basophils % 0.3 , Absolute Granulocytes 2.4, Absolute Lymphocytes 1.1 L, Absolute Monocytes 0.4 , Absolute Eosinophils 0.1, Absolute Basophils 0, Levetiracetam Pending Problems: Seizure disorder -No further episodes overnight. -Patient will be discharged home on increased dose of Keppra as recommended by the neurology service. -Patient should be given a referral to the urology service as an outpatient for EEG testing and monitoring of response to adjustment of these medications. -Given his significant improvement overnight and no further seizure episode he is medically stable to be discharged home today.
== END 2017-11-17 12:45 | DRG 101 ==
LOC: ERH 11:56 → ERHI 13:42 → ENRESERV 15:05 → CANRESERV 15:05 → EDBEDREQ 15:26 → ENRESERV 16:33 → ENTRNSPT 16:51 → EDTRNSPT 17:13 → EDTRNSPTSTS 17:13 → 2NB 17:37 → CMPTRNSPT 17:39 → ENPENDDIS 11-17 09:46 → ENTRNSPT 11-17 12:35 → 2NB 11-17 12:45 → EDTRNSPTSTS 11-17 12:48 → EDTRNSPT 11-17 12:48 → CMPTRNSPT 11-17 12:53
PROVIDERS: Emergency Medicine; Internal Medicine
DX: G40.909 Epilepsy, unspecified, not intractable, without status epilepticus (principal); I48.2 Chronic atrial fibrillation; I10 Essential (primary) hypertension; Z86.73 Personal history of transient ischemic attack (TIA), and cerebral infarction without residual deficits; Z79.01 Long term (current) use of anticoagulants; E78.5 Hyperlipidemia, unspecified; K21.9 Gastro-esophageal reflux disease without esophagitis; Z66 Do not resuscitate; Z91.14 Patient's other noncompliance with medication regimen; Z96.651 Presence of right artificial knee joint
CPT/HCPCS: 2NBSP; 36592; 71045; 81003; 82436; 93005; 93010; G0480; J1953; J3490; J7042